=== PATIENT | female | born 1990 | race Caucasian/White ===

== ENCOUNTER 2016-10-06 14:11 | Emergency (ER) | payer OTHER, BC ==
[~2016-10-06] VITALS: Ht 167.6 cm; Wt 59.3 kg
[2016-10-06 14:17] VITALS: BP 129/81
[2016-10-06] MEDS ORDERED: AUGMENTIN875 MG PO (15:21)
== END 2016-10-06 15:42 | disposition home or self-care (01) ==
LOC: EME 14:11
DX: S61.230A Puncture wound without foreign body of right index finger without damage to nail, initial encounter (principal); W55.01XA Bitten by cat, initial encounter
CPT/HCPCS: 99281; 99284